=== PATIENT | male | born 1965 ===

== ENCOUNTER 2024-08-21 10:41 | Outpatient (AMB) | payer MEDICARE, MEDICAID, SELFPAY ==
[2024-08-21 11:12] VITALS: BP 133/95; PULSE 82; O2SAT 95; BMI 34.5
--- NOTE | 2024-08-21 11:12 | A.OFFVIS_ITS ---
Vital Signs 08/21/24 11:12 Height 6 ft 5 in Weight 291 lb BMI 34.5 BP 133/95 H Blood Pressure Location Rt brachial Position Sitting Pulse 82 Pulse Source Pulse Oximeter Pulse Oximetry (%) 95 Oxygen Delivery Method Room Air Intake Visit Reasons: Foot pain Stitching Machine Feeder Or Offbearer Services: Stitching Machine Feeder Or Offbearer Present Stitching Machine Feeder Or Offbearer Name: #[id number] then we used #[id number] Information Interpreted: non-clinical & clinical Allergies Atorvastatin Allergy (Unknown, Uncoded 08/21/24 11:14) Myalgia Medication List - Last Reconciled 08/21/24 by Pura Henry, DRUG PURCHASER alcohol swabs (BD Alcohol Swabs) pad topical BID amiodarone 200 mg PO DAILY apixaban (Eliquis) 5 mg PO BID cetirizine 10 mg PO DAILY diclofenac sodium 1% 1 ea topical QID fluticasone propionate 50 mcg/actuation sprays intranasal gabapentin mg PO gabapentin 600 mg PO TID glucagon (Gvoke HypoPen 2-Pack) mg subcut hydrocortisone 1% appl topical insulin aspart (niacinamide) 100 unit/mL (3 mL) (Fiasp FlexTouch U-100 Insulin) subcut insulin aspart U-100 subcut insulin glargine (Lantus Solostar U-100 Insulin) units subcut levothyroxine (Synthroid) 137 mcg PO DAILY levothyroxine (Synthroid) 100 mcg PO DAILY metoprolol succinate ER 25 mg PO DAILY naloxone 4 mg/actuation intranasal oxycodone mg PO pen needle, diabetic As directed polyethylene glycol 3350 (Gavilax) grams PO polymyxin B sulf-trimethoprim 10,000 unit- 1 mg/mL ophthalmic (eye) pravastatin 20 mg PO DAILY tizanidine 2 mg PO TID tramadol 50 mg PO BID PRN HPI Comments Details: Star is a very pleasant 59-year-old male who presents to the office today for evaluation and management of his painful bilateral peripheral neuropathy. Visit completed with [facility] [employer] #[id number]. He has been suffering with this pain since 01/2023 after undergoing partial pancreatectomy for cancer. He then developed diabetes. Reports bilateral foot pain, numbness to the heels bilaterally, numbness to the toes bilaterally, burning and tingling to the tops of both feet up to the ankle. Endorses burning, tingling, numbness pain to both feet that is worse in the evening and is preventing him from being able to sleep. Previously he was prescribed gabapentin, this did not improve his pain and he suffered with side effects including brain fog. The patient is known diabetic, most recent A1c is 7.2. He monitors his diabetes very closely. Takes his medications as prescribed. Reports he is very cautious and manages his sugars well. Patient has a health unit supervisor, at recent visit they referred him here for evaluation and management. In terms of muscle damage condition is described as throbbing, pinching, stabbing, tingling, burning, numbness Pain is negatively impacting patient's sleep, recreational activities, enjoyment of life. Endorses current use of anticoagulants, Eliquis. Denies current use of nicotine, tobacco, alcohol or illicit substances Denies implantable devices, pacemaker defibrillator [facility] Medical History (Updated 08/21/24 @ 12:33 by Ninoska Vogel APRN, C[employer]) Thyroid cancer Current use of anticoagulant therapy Hypertension High cholesterol Hypothyroid Pancreatic cancer Surgical History (Updated 08/21/24 @ 12:33 by Ninoska Vogel APRN, COOK [employer]ARCH) History of back surgery History of hip surgery H/O splenectomy Review of Systems Const All systems reviewed & are unremarkable except as noted in HPI and below Physical Exam Vital Signs: Last Vital Signs Pulse 82 08/21/24 11:12 BP 133/95 H 08/21/24 11:12 Pulse Ox 95 08/21/24 11:12 Oxygen Delivery Method Room Air 08/21/24 11:12 BMI result Body Mass Index 34.5 General: awake, alert, oriented. Answers questions appropriately. Fully engaged in examination. Skin: warm, dry, intact. No wounds, rashes or lesions noted. HEENT: Normocephalic. Hearing intact. Cardiac: External chest normal in appearance. Respiratory: No cough, audible wheezing or stridor. Abdomen: without gross distension. MS: No obvious swelling or deformities. Able to transition from sit to stand unassisted. Ambulates with bilaterally normal heel strike and toe off Right foot: skin intact. decreased light/sharp sensation Left foot: skin intact. decreased light/sharp sensation Neurological: Oriented to person, place, time and situation. Thought process intact. No gait abnormalities appreciated. Psychiatric: Appropriate mood and affect. Good judgment and insight. Assessment & Plan Assessment & Plan (1) Diabetes: Code(s): E11.9 - Type 2 diabetes mellitus without complications Category: Medical (2) Diabetic neuropathy: Code(s): E11.40 - Type 2 diabetes mellitus with diabetic neuropathy, unspecified Category: Medical (3) Chronic pain syndrome: Code(s): G89.4 - Chronic pain syndrome Category: Medical Plan Star is a very pleasant 59-year-old male who presented to the office today for evaluation and management of his painful bilateral diabetic neuropathy. He has been suffering with this pain for 2 years. Will discontinue Gabapentin and trial Pregabalin 50mg po BID. Patient advised on cautions for use. Discussed options for treatment including in office topical capsaicin appli cation and more permanent neuromodulation. Pamphlets for Qutenza in Kiswahili given to the patient for home review. Procedure was explained in depth including pre, during and post instructions. Will submit PA for Qutenza topical application. Patient advised on procedure including preparation and EMLA application prior to appointment. He is aware treatment is done in office and he will be here for at least 30minutes during each visit. Also discussed option for SCS trial/implant if no improvement with Qutenza/Lyrica. Will discuss further if patient does not receive benefit from Qutenza topical. All questions and concerns have been answered and patient agrees with the plan. Patient aware he will be called to schedule appointment for Qutenza pending insurance approval. Medications: New pregabalin Discontinue gabapentin prior to starting this medication. 50 mg PO BID 60 caps 3RF Coding Level of Care Code New Pt Level 4 (53049) Complex EM visit Add On G2211 Diagnoses Diabetes E11.9 Diabetic neuropathy E11.40 Chronic pain syndrome G89.4
--- OUTSIDE RECORDS SUMMARY | 2024-08-21 12:17 | XMS_ITS | Clinical Summary ---
Author Organization [address] [place] [address] Address [address] [place] [address] Phone Care Team Providers Care Plastics Bench Mechanic Name Role Phone Elisa Hobbs MD Primary Care Provider [phone] Allergies Active Allergy Reactions Criticality Noted Date Comments Atorvastatin 07/31/2024 Sitagliptin 07/31/2024 Encounters Date Type Department Care Team Description 07/31/2024 9:30 AM EDT Consult Orthopedic [facility] [address] [phone] Artem Orellana DPM Diabetic mononeuropathy simplex (CMS/HCC) (Primary Dx); Type 2 diabetes mellitus with foot ulcer (CODE) (CMS/HCC); Type II diabetes mellitus with peripheral circulatory disorder (CMS/HCC); Pain in toe of right foot; Pain in toe of left foot; Dermatophytosis of nail; Hypertrophy of nail from Last 3 Months Social History Tobacco Use Types Packs/Day Years Used Date Smoking Tobacco: Never Assessed Sex and Gender Information Value Date Recorded Sex Assigned at Not on file Legal Sex Male 4:16 AM EST Gender Identity Not on file Sexual Orientation Not on file Last Filed Vital Signs Vital Sign Reading Time Taken Comments Blood Pressure - - Pulse - - Temperature - - Respiratory Rate - - Oxygen Saturation - - Inhaled Oxygen Concentration - - Weight 134 kg (296 lb) 07/31/2024 10:50 AM EDT Height 195.6 cm (6' 5 ) 07/31/2024 10:50 AM EDT Body Mass Index 35.1 07/31/2024 10:50 AM EDT Plan of Treatment Upcoming Encounters Date Type Department Care Team ([facility] st Contact Info) Description 10/02/2024 9:30 AM EDT Office Visit Orthopedic Surgery [facility] [address] [phone] Artem Orellana, DPM [address] [address] Health Maintenance Due Date Last Done Comments Diabetes: Annual GFR (Glomerular Filtration Rate) 1963 Diabetes: Annual Foot Exam 1973 Diabetes: Annual Retina Eye Exam 1973 Hepatitis B Vaccines (2 of 2 - CpG 2-dose series) 01/02/2024 12/05/2023 COVID-19 Vaccine ( season) 2024 04/28/2021, 09/21/2020, 08/29/2020 Cholesterol Screening (Lipid Panel) 05/02/2024 Colorectal Cancer Screening: Colonoscopy 05/02/2024 Depression Screening 05/02/2024 Diabetes: Annual Urine Albumin-Creatinine Ratio (uACR) 05/02/2024 Diabetes: Blood Sugar Control Test (HGBA1C) 05/02/2024 HIV Screening 05/02/2024 Hepatitis C Screening 05/02/2024 Medicare Annual Wellness Visit 05/02/2024 Social Influencers of Health Screening 05/02/2024 Hypertension/CHF/CAD Annual BMP Blood Test 07/31/2024 DTaP,Tdap,and Td Vaccines (2 - Td or Tdap) 09/11/2028 09/11/2018 Zoster Vaccines Completed 05/22/2019, 03/14/2019 Pneumococcal Vaccine: 50+ Years Completed 01/18/2023, 06/24/2016 Pneumococcal Vaccine: Pediatrics (0 to 5 Years) and At-Risk Patients (6 to 64 Years) Completed 01/18/2023, 06/24/2016 HIB Vaccines Aged Out 02/09/2023 No longer eligi ble based on patient's age to complete this topic Meningococcal ACWY Vaccine Aged Out 03/20, 01/18/2023, 01/18/2023 No longer eligible based on patient's age to complete this topic Meningococcal B Vaccine Aged Out 03/20/2023, 01/18 No longer eligible based on patient's age to complete this topic RSV Immunization Adult Patients Completed 11/21/2023 Influenza Vaccine Completed 03/20/2024, , 03/02/2022, Additional history exists HPV Vaccines Aged Out No longer eligi ble based on patient's age to complete this topic Hepatitis A Vaccines Aged Out No long er eligible based on patient's age to complete this topic IPV Vaccines Aged Out No longer eligi ble based on patient's age to complete this topic MMR Vaccines Aged Out No longer eligi ble based on patient's age to complete this topic RSV Immunization Patients Under 20 months Aged Out No longer eligible based on patient's age to complete this topic Varicella Vaccines Aged Out No longer eligible based on patient's age to complete this topic Insurance MEDICARE MEDICAID - [place] Care Teams Plastics Bench Mechanic Relationship Specialty Start Date End Date Elisa Hobbs MD [address] [place] [address] PCP - General Internal Medicine 05/02/24
--- OUTSIDE RECORDS SUMMARY | 2024-08-21 12:17 | XMS_ITS | Clinical Summary ---
Author Organization [facility] Address [address] [place] [address] Care Team Providers Care Phd Internship Name Role Phone Unavailable Primary Care Provider Unavailabl e Source Comments PLEASE NOTE, if this patient is a minor, it may be UNLAWFUL to discuss sensitive information that is contained in these records (such as FAMILY PLANNING, MENTAL HEALTH or SUBSTANCE ABUSE) with the minor patient's parent or other person without the patient's specific authorization.[facility] Allergies No known active allergies Medications chlorhexidine gluconate (PERIDEX) 0.12 % solutionIndication s:Chronic periodontal disease Swish and spit 15 mL 2 (two) times daily 473 mL 1 2 Active SYNTHROID 100 mcg tablet 3 Active peg-electrolyte soln (NULYTELY) 420 gram solution 3 Active pravastatin (PRAVACHOL) 20 mg tablet 3 Active oxyCODONE (ROXICODONE) 5 mg tablet SINTIA 1 TABLETA POR LA BOCA CADA 6 HORAS CUANDO SEA NECESARIO PARA EL DOLOR MODERADO 3 Active metFORMIN (GLUCOPHAGE) 500 mg tablet 3 Active glipiZIDE XL (GLUCOTROL XL) 5 mg ER, 24 hour tablet 3 Active ibuprofen 600 mg tabletIndications: Chronic apical periodontitis Take 1 Tablet by mouth 4 (four) times daily as needed for mild pain 20 Tablet 3 Active amoxicillin (AMOXIL) 500 mg capsuleIndications :Chronic apical periodontitis Take 1 Capsule by mouth 3 (three) times daily 21 Capsule 3 Active Active Problems No known active problems Social History Tobacco Use Types Packs/Day Years Used Date Smoking Tobacco: Never Smokeless Tobacco: Never Tobacco Cessation:Counseling Given: Not Answered Social Connections Answer Date Recorded Connectedness 0 02/01/2024 Financial Resource Strain Answer Date R ecorded Financial Resource Strain 0 2021 Stress Answer Date Recorded Stress 0 12/02/2021 Physical Activity Answer Date Recorded Physical Activity 0 12/02/2021 Food Insecurity Answer Date Recorded Food 0 02/08/2024 Transportation Needs Answer Date Record ed Transportation 0 12/02/2021 Housing Stability Answer Date Recorded Housing 0 12/02/2021 Safety and Environment Answer Date Aakash rded Safety 0 12/02/2021 Utilities Answer Date Recorded Utilities 0 12/02/2021 Employment Answer Date Recorded Stress 0 02/01/2024 Sex and Gender Information Value Date Recorded Sex Assigned at Not on file Legal Sex Male 11:37 AM PDT Gender Identity Not on file Sexual Orientation Not on file Last Filed Vital Signs Vital Sign Reading Time Taken Comments Blood Pressure 132/81 05/09/2024 11:05 AM EST Pulse 74 05/09/2024 11:05 AM EST Temperature - - Respiratory Rate - - Oxygen Saturation - - Inhaled Oxygen Concentration - - Weight - - Height - - Body Mass Index - - Plan of Treatment Upcoming Encounters Date Type Department Care Team (Late st Contact Info) Description 11/07/2024 9:40 AM EDT Office Visit [facility] [address] [place] [phone] Vincent Segura, D [address] [place] [address] Health Maintenance Due Date Last Done Comments Anxiety Screening 1963 Dental FMX/Pano 1963 Diabetes Screening 1963 Hepatitis B Screening 1963 Hepatitis C Screening 1963 Lipid Screening 1963 TSH Monitoring 1963 HIV Screening 1963 Syphilis Screening 05/12/1977 Imm-Hepatitis A (1 of 2 - Ri sk 2-dose series) 1982 CT Colonography 2008 Colonoscopy 2008 Colorectal Cancer Screening 2008 FIT/gFOBT 2008 Fecal DNA 2008 Flexible Sigmoidoscopy 2008 Imm-Zoster, Recombinant (2 of 2) 05/09/2019 03/14/20 19 Imm-Hepatitis B (1 of 3 - Ri sk 3-dose series) 2023 [id number] ( season) 2024 04/28/2021, 09/21/2020, 08/29/2020 Alcohol and Drug Screen 05/15/2024 Depression Annual Screen 05/15/2024 Dental BW 11/09/2024 11/08/2023, 10/14, 05/04/2022, Additional history exists Hypertension Screening (#1) 05/09/2025 Tobacco Screening 05/09/2025 05/09/2024 Dental Examination 2025 05/09/2024, 0 11/08/2023, 05/09/2023, Additional history exists Dental Perio Charting 2025 05/09/2024 , 11/08/2023, 05/09/2023, Additional history exists Dental Prophy 2025 05/09/2024, 10/14, 05/09/2023, Additional history exists Imm-DTaP/Tdap/Td (2 - Td or Tdap) 09/11/2028 019 Imm-Influenza Completed 03/20/2024, 0910/2022, 03/02/2022, Additional history exists Procedures Procedure Name Priority Date/Time Associated Diagnosis Comments COMP PERIODONTAL EVALUATION - NEW/EST PATIENT Routine 05/09/2024 11:00 AM EST Encounter for dental examination PROPHYLAXIS - ADULT Routine 05/09/2024 1 1:00 AM EST Encounter for dental examination PERIODIC ORAL EVALUATION ESTABLISHED PATIENT Routine 05/09/2024 11:00 AM EST Encounter for dental examination BITEWINGS - FOUR RADIOGRAPHIC IMAGES Routine 11/08/2023 2:20 PM EDT Encounter for dental examination from Last 3 Months or Most Recently Relevant to Health Maintenance Insurance [place] MEDICAID DENTAL [facility]
== END 2024-08-21 11:28 | disposition home or self-care (01) ==
LOC: HO.PMC 10:41
PROVIDERS: PCP Internal Medicine; Referring Provider Internal Medicine; Visit Provider Registered Nurse Emergency
DX: E11.40 Type 2 diabetes mellitus with diabetic neuropathy, unspecified (principal); G89.4 Chronic pain syndrome
CPT/HCPCS: 99204; G2211

== ENCOUNTER → 2024-08-21 10:41 | Outpatient (BNVA) | payer MEDICARE, MEDICAID, SELFPAY | PROVIDERS: PCP Internal Medicine; Referring Provider Internal Medicine; Visit Provider Registered Nurse Emergency | DX: E11.40 Type 2 diabetes mellitus with diabetic neuropathy, unspecified (principal); G89.4 Chronic pain syndrome | CPT/HCPCS: 99202 ==

== ENCOUNTER 2024-09-18 09:10 | Outpatient (AMB) | payer MEDICARE, MEDICAID, SELFPAY ==
[2024-09-18 09:20] VITALS: BP 154/90; PULSE 82; O2SAT 95; BMI 34.1
--- NOTE | 2024-09-18 09:20 | MHC.OFFVIS ---
Vital Signs 09/18/24 09:20 Height 6 ft 5 in Weight 288 lb BMI 34.1 BP 154/90 H Blood Pressure Location Rt brachial Position Sitting Pulse 82 Pulse Source Pulse Oximeter Pulse Oximetry (%) 95 Oxygen Delivery Method Room Air Intake Visit Reasons: Denial FU Senior Digital Designer Required: No Allergies Atorvastatin Allergy (Unknown, Uncoded 09/18/24 09:21) Myalgia Medication List - Last Reconciled 09/18/24 by Pura Henry, FABIANO alcohol swabs (BD Alcohol Swabs) pad topical BID amiodarone 200 mg PO DAILY apixaban (Eliquis) 5 mg PO BID cetirizine 10 mg PO DAILY diclofenac sodium 1% 1 ea topical QID fluticasone propionate 50 mcg/actuation sprays intranasal glucagon (Gvoke HypoPen 2-Pack) mg subcut hydrocortisone 1% appl topical insulin aspart (niacinamide) 100 unit/mL (3 mL) (Fiasp FlexTouch U-100 Insulin) subcut insulin aspart U-100 subcut insulin glargine (Lantus Solostar U-100 Insulin) units subcut levothyroxine (Synthroid) 137 mcg PO DAILY levothyroxine (Synthroid) 100 mcg PO DAILY metoprolol succinate ER 25 mg PO DAILY naloxone 4 mg/actuation intranasal oxycodone mg PO pen needle, diabetic As directed polyethylene glycol 3350 (Gavilax) grams PO polymyxin B sulf-trimethoprim 10,000 unit- 1 mg/mL ophthalmic (eye) pravastatin 20 mg PO DAILY pregabalin 50 mg PO BID tizanidine 2 mg PO TID tramadol 50 mg PO BID PRN HPI Comments Details: The patient is a 59-year-old male presenting with neuropathic pain primarily affecting his feet. This discomfort is described as a burning sensation, which has persisted since the diagnosis of diabetes mellitus. While current medications have offered some relief, the efficacy remains limited, and he has opted not to alter the dosage due to his concurrent medical conditions. This neuropathic pain considerably affects his quality of life, disturbing his sleep and daily activities. The patient also has a history of pancreatic cancer identified in 2022, which retrospective imaging suggested had been present since 2019. This was discovered following the of his brother, who had suffered from the same malignancy. The patient has also been treated for thyroid cancer diagnosed in 2008. Insurance complications have further complicated his care, with current treatment for his foot pain denied due to perceived lack of adequate medical documentation. Patient would like PA resubmitted to include more detailed records. - Onset: Associated with diabetes diagnosis - Timing: Persisting, exacerbated during nighttime - Quality: Burning sensation - Primary Location: Feet - Exacerbating Factors: Nighttime, inactivity - Alleviating Factors: Mild relief with current medication - Interference: Quality of sleep, daily activities - Affect: The pain impacts his mood, sometimes causing feelings of frustration - Analgesia: Current medication provides little relief; concerns about increasing dose due to multiple other medications - Adverse Effects: Not explicitly mentioned - Activities of Daily Living: Pain significantly disrupts sleep and daily functions - Aberrant Drug Related Behaviors: None mentioned [facility] Medical History (Updated 09/18/24 @ 12:31 by Ninoska Vogel APRN, VICE PRESIDENT SUPPLY CHAIN) Thyroid cancer Current use of anticoagulant therapy Hypertension High cholesterol Hypothyroid Pancreatic cancer Surgical History (Updated 08/21/24 @ 12:33 by Ninoska Vogel APRN, VICE PRESIDENT [employer]PPLY CHAIN) History of back surgery History of hip surgery H/O splenectomy Review of Systems Const Details: - Neurological: Reports burning sensation in feet - Endocrine: History of diabetes mellitus - Musculoskeletal: Denies any other complaints - Hematologic/Oncologic: Reports history of pancreatic and thyroid cancers Physical Exam Vital Signs: Last Vital Signs Pulse 82 09/18/24 09:20 BP 154/90 H 09/18/24 09:20 Pulse Ox 95 09/18/24 09:20 Oxygen Delivery Method Room Air 09/18/24 09:20 BMI result Body Mass Index 34.1 General: awake, alert, oriented. Answers questions appropriately. Fully engaged in examination. Skin: warm, dry, intact. No wounds, rashes or lesions noted. HEENT: Normocephalic. Hearing intact. Cardiac: External chest normal in appearance. Respiratory: No cough, audible wheezing or stridor. Abdomen: without gross distension. MS: No obvious swelling or deformities. Able to transition from sit to stand unassisted. Ambulates with bilaterally normal heel strike and toe off Neurological: Oriented to person, place, time and situation. Thought process intact. No gait abnormalities appreciated. Psychiatric: Appropriate mood and affect. Good judgment and insight. Assessment & Plan Assessment & Plan (1) Diabetes: Code(s): E11.9 - Type 2 diabetes mellitus without complications Category: Medical (2) Diabetic neuropathy: Code(s): E11.40 - Type 2 diabetes mellitus with diabetic neuropathy, unspecified Category: Medical (3) Chronic pain syndrome: Code(s): G89.4 - Chronic pain syndrome Category: Medical (4) History of pancreatic cancer: Code(s): Z85.07 - Personal history of malignant neoplasm of pancreas Category: Medical Plan The primary focus is on managing the patient's diabetic neuropathy, with plans to resubmit insurance documentation to approve more effective therapeutic interventions. There are considerations to advance to a spinal cord stimulator trial if initial measures remain inadequate. All relevant documentation and medical records will be reviewed to facilitate treatment approvals. During the visit, I discussed the patient's neuropathic pain management options. I explained the possibility of resubmitting insurance documentation to acquire approval for alternative treatments, including the Qutenza patch. I reviewed the potential for a spinal cord stimulator trial, describing its application in neuropathy treatment and the procedural aspects involved in a trial period. The patient was informed about insurance challenges faced and strategies to align future submissions with payer requirements. He has exhausted conservative therapy including OTC medications, prescription medications. ice, heat, topical medications. Unable to take NSAIDs d/t current use of Eliquis. Patient was informed and verbally consented to the use of an ambient scribe for clinic note documentation during this visit. Patient Instructions: - Continue current pain management regimen as prescribed. - Keep a pain diary to track symptoms and treatment effects. - Await contact regarding insurance resubmission outcomes. - Consider light walking to help manage pain symptoms. - Notify of any new or worsening symptoms promptly. - Maintain regular follow-up appointments for monitoring. Coding Level of Care Code Est Pt Level 3 (25170) Complex EM visit Add On G2211 Diagnoses Diabetes E11.9 Diabetic neuropathy E11.40 Chronic pain syndrome G89.4 History of pancreatic cancer Z85.07
--- OUTSIDE RECORDS SUMMARY | 2024-09-18 09:44 | XMS_ITS | Clinical Summary ---
Author Organization [facility] Address [address] [place] [address] Care Team Providers Care Tool Machinist Name Role Phone Unavailable Primary Care Provider [...] Description 11/07/2024 9:40 AM EDT Office Visit [facility] [address] [place] [phone] Ramirez Jayleen Y [address] [place] [address] Health Maintenance Due Date Last Done Comments [...] 3 - Ri sk 3-dose series) 2023 [id number] ( season) 2024 04/28/2021, 09/21/2020, 08/29/2020 Alcohol [...] or Tdap) 09/11/2028 019 Imm-Influenza Completed 03/20/2024, 10/2022, 03/02/2022, Additional history exists Procedures Procedure Name [...] Most Recently Relevant to Health Maintenance Insurance [place] MEDICAID DENTAL [facility]
--- OUTSIDE RECORDS SUMMARY | 2024-09-18 09:44 | XMS_ITS | Clinical Summary ---
Author Organization [address] [place] [address] Address 175 [place] [address] Phone Care Team Providers Care Product Safety Consultant Name Role Phone Elisa Hobbs MD Primary Care Provider [phone] Allergies Active Allergy Reactions Criticality Noted Date Comments Atorvastatin 07/31/2024 Sitagliptin 07/31/2024 Encounters Date Type Department Care Team Description 07/31/2024 9:30 AM EDT Consult Orthopedic Surgery [facility] 250 [address] [facility] [address] [place] [address] Artem Orellana DPM Diabetic mononeuropathy simplex (CMS/HCC V24, CMS/HCC V28) (Primary Dx); Type 2 diabetes mellitus with foot ulcer (CODE) (CMS/HCC V24, CMS/HCC V28); Type II diabetes mellitus with peripheral circulatory disorder (CMS/HCC V24, CMS/HCC V28); Pain in toe of right foot; Pain [...] Upcoming Encounters Date Type Department Care Team ([facility] st Contact Info) Description 10/02/2024 9:30 AM EDT Office Visit Orthopedic Surgery - [place] 250 175 [facility] 250 [place] [phone] Artem Orellana, DPLauren [address] [address] Health Maintenance Due Date Last Done Comments Diabetes: Annual GFR (Glomerular Filtration Rate) 1963 Diabetes: Annual Foot Exam 1973 Diabetes: Annual Retina Eye Exam 1973 Hepatitis B Vaccines (2 of 2 - CpG 2-dose series) 01/02/2024 12/05/2023 COVID-19 Vaccine () 01/14/2024 04/28/2021, 09/21/2020, 08/29/2020 Cholesterol Screening (Lipid Panel) [...] Insurance MEDICARE MEDICAID - [place] Care Teams Product Safety Consultant Relationship Specialty Start Date End Date Elisa Hobbs MD [address] [place] [address] PCP - General Internal Medicine 05/02/24
== END 2024-09-18 09:33 | disposition home or self-care (01) ==
LOC: HO.PMC 09:11
PROVIDERS: PCP Internal Medicine; Visit Provider Registered Nurse Emergency
DX: E11.40 Type 2 diabetes mellitus with diabetic neuropathy, unspecified (principal); G89.4 Chronic pain syndrome; Z85.07 Personal history of malignant neoplasm of pancreas
CPT/HCPCS: 99213; G2211

== ENCOUNTER → 2024-09-18 09:10 | Outpatient (BNVA) | payer MEDICARE, MEDICAID, SELFPAY | PROVIDERS: PCP Internal Medicine; Visit Provider Registered Nurse Emergency | DX: E11.40 Type 2 diabetes mellitus with diabetic neuropathy, unspecified (principal); G89.4 Chronic pain syndrome; Z85.07 Personal history of malignant neoplasm of pancreas | CPT/HCPCS: 99212 ==

== ENCOUNTER 2024-10-23 10:21 | Outpatient (AMB) | payer MEDICARE, MEDICAID, SELFPAY ==
[2024-10-23 10:23] VITALS: BP 131/79; PULSE 88; RESP 16; O2SAT 92; BMI 34.0
--- NOTE | 2024-10-23 10:23 | MHC.OFFVIS ---
Vital Signs 10/23/24 10:23 10/23/24 10:52 10/23/24 11:13 Height 6 ft 5 in Weight 287 lb BMI 34.0 BP 131/79 125/78 131/82 Blood Pressure Location Lt brachial Lt brachial Lt brachial Position Sitting Sitting Sitting Respiration 16 16 16 Pulse 88 80 78 Pulse Source Pulse Oximeter Pulse Oximeter Pulse Oximeter Pulse Oximetry (%) 92 95 95 Oxygen Delivery Method Room Air Room Air Room Air Intake Visit Reasons: 1st Qutenza application Radiation Protection Engineer Required: No Accompanied by: Self / Same As Patient Allergies Atorvastatin Allergy (Unknown, Uncoded 09/18/24 09:21) Myalgia HPI Comments Details: Star is a very pleasant 59-year-old male who presents to the office today for first Qutenza application. Patient applied EMLA cream at home per instructions. He is accompanied by his today. He denies any changes in his bilateral peripheral neuropathy since last visit. Denies new meds, allergies or diagnoses. Patient denies any recent injuries or wounds to his feet. Has been taking pregabalin as prescribed since last visit, reports minimal improvement in his symptoms since starting the medication. Would like to consider dose increase. [facility] Medical History (Updated 09/18/24 @ 12:31 by Ninoska Vogel APRN, GUNJAN) Thyroid cancer Current use of anticoagulant therapy Hypertension High cholesterol Hypothyroid Pancreatic cancer Surgical History (Updated 08/21/24 @ 12:33 by Ninoska Vogel APRN, AXLE BEARING POLISHER) History of back surgery History of hip surgery H/O splenectomy Review of Systems Const All systems reviewed & are unremarkable except as noted in HPI and below Physical Exam Vital Signs: Last Vital Signs Pulse 78 10/23/24 11:13 Resp 16 10/23/24 11:13 BP 131/82 10/23/24 11:13 Pulse Ox 95 10/23/24 11:13 Oxygen Delivery Method Room Air 10/23/24 11:13 BMI result Body Mass Index 34.0 General: awake, alert, oriented. Answers questions appropriately. Fully engaged in examination. Skin: warm, dry, intact. No wounds, rashes or lesions noted. HEENT: Normocephalic. Hearing intact. Cardiac: External chest normal in appearance. Respiratory: No cough, audible wheezing or stridor. Abdomen: without gross distension. MS: No obvious swelling or deformities. Able to transition from sit to stand unassisted. Ambulates with bilaterally normal heel strike and toe off Neurological: Oriented to person, place, time and situation. Thought process intact. No gait abnormalities appreciated. Psychiatric: Appropriate mood and affect. Good judgment and insight. Office Procedures Topical Capsaicin Date 1:: 10/23/24 Laterality: Bilateral Office Meds capsaicin-skin cleanser 8 % topical kit Performing Provider: Ninoska Vogel APRN, CNP Performing Location: [facility] Administered by: Ninoska Vogel APRN, CNP on 10/23/24 12:58 Dose Route Admin Location Dispensed Lot Number Expiration Date [facility] Psychiatric Technician Assistant 1 ea topical 1 ea [id number] 03/13/26 36433-945-46 [employer] Comments: Patient applied topical EMLA cream to both feet prior to arrival for his scheduled appointment. Feet exposed, no wounds, rashes or breaks in skin noted. Light touch sensation intact bilaterally. Four single use topical patches (179mg capsaicin) divided between feet, 2 patches per foot, wrapped and secured per package instructions. Patient monitored throughout the procedure with BP checks every 15 minutes. He tolerated the 30 minute application well. Assessment & Plan Assessment & Plan (1) Diabetic neuropathy: Code(s): E11.40 - Type 2 diabetes mellitus with diabetic neuropathy, unspecified Category: Medical (2) Diabetes: Code(s): E11.9 - Type 2 diabetes mellitus without complications Category: Medical (3) Chronic pain syndrome: Code(s): G89.4 - Chronic pain syndrome Category: Medical (4) History of pancreatic cancer: Code(s): Z85.07 - Personal history of malignant neoplasm of pancreas Category: Medical Plan Patient presented to the office today for 1st Qutenza topical application for bilateral peripheral neuropathy. Qutenza application as per above. Patient tolerated well, discharged home with no reported untoward effects. Cleansing gel applied prior to discharge, patient given cleansing gel for home use if needed. Will increase Lyrica dose to 100 mg twice daily. He was advised to use prescription that he just filled at the pharmacy, take 2 pills twice daily. Call the office one-week before refill as needed so new prescription can be sent. If he notices increased drowsiness with the increased dose he should contact the office, we can trial 75 mg twice daily instead. All questions and concerns were answered. Patient will follow up in the office as planned for next Qutenza application. Orders: Orders AMB Capsaicin Patch - Practice Supplied Today E11.40 - Type 2 diabetes mellitus with diabetic neuropathy, unspecified Medications: New capsaicin-skin cleanser 8 % 1 ea topical ONCE 1 ea 0RF E11.40 - Type 2 diabetes mellitus with diabetic neuropathy, unspecified Coding Level of Care Code Est Pt Level 3 (75143) Complex EM visit Add On G2211 Diagnoses Diabetic neuropathy E11.40 Diabetes E11.9 Chronic pain syndrome G89.4 History of pancreatic cancer Z85.07
[2024-10-23 10:52] VITALS: BP 125/78; PULSE 80; RESP 16; O2SAT 95
[2024-10-23 11:13] VITALS: BP 131/82; PULSE 78; RESP 16; O2SAT 95
--- OUTSIDE RECORDS SUMMARY | 2024-10-23 11:44 | XMS_ITS | Clinical Summary ---
Author Organization [address] [place] [address] Address 175 [place] [address] Phone Care Team Providers Care Safety Clothing And Equipment Developer Name Role Phone Elisa Hobbs MD Primary Care Provider [phone] Allergies Active Allergy Reactions Criticality Noted Date Comments Atorvastatin 07/31/2024 Sitagliptin 07/31/2024 Medications No known medications Encounters Date Type Department Care Team Description 10/02/2024 9:30 AM EDT Office Visit Orthopedic Surgery [facility] [address] [phone] Artem Orellana DPM Hypertrophy of nail (Primary Dx); Type 2 diabetes mellitus with foot ulcer (CODE) ([facility] V24, [facility] V28); Diabetic mononeuropathy simplex ([facility] V24, CMS/[facility] V28); Type II diabetes mellitus with peripheral circulatory disorder (CMS/[facility] V24, CMS/[facility] V28); Pain in toe of right foot; Pain in toe of left foot; Verruca plantaris 07/31/2024 9:30 AM EDT Consult Orthopedic [facility] [address] [phone] Artem Orellana DPM Diabetic mononeuropathy simplex (CMS/[facility] V24, CMS/[facility] V28) (Primary Dx); Type 2 diabetes mellitus [...] Sex Male 4:16 AM EST Gender Identity Male 09/25/2024 12:25 PM EDT Sexual Orientation Straight 09/25/2024 12 :25 PM EDT Last Filed Vital Signs Vital Sign Reading Time Taken Comments Blood Pressure - - Pulse - - Temperature - - Respiratory Rate - - Oxygen Saturation - - Inhaled Oxygen Concentration - - Weight 134 kg (296 lb) 10/02/2024 9:19 AM EDT Height 195.6 cm (6' 5.01 ) 10/02/2024 9:19 AM ED T Body Mass Index 35.09 10/02/2024 9:19 AM EDT Plan of Treatment Upcoming Encounters Date Type Department Care Team (Late st Contact Info) Description 11/20/2024 9:15 AM EDT Office Visit Orthopedic Surgery - [place] [phone] [phone] Artem Orellana, DPM [address] [address] Health Maintenance Due Date Last Done Comments [...] Insurance MEDICARE MEDICAID - [place] Care Teams Safety Clothing And Equipment Developer Relationship Specialty Start Date End Date Elisa Hobbs MD [address] [place] [address] PCP - General Internal Medicine 05/02/24
== END 2024-10-23 11:19 | disposition home or self-care (01) ==
LOC: HO.PMC 10:21
PROVIDERS: PCP Internal Medicine; Visit Provider Registered Nurse Emergency
DX: E11.40 Type 2 diabetes mellitus with diabetic neuropathy, unspecified (principal); G89.4 Chronic pain syndrome; Z85.07 Personal history of malignant neoplasm of pancreas
CPT/HCPCS: 17999; 99213

== ENCOUNTER → 2024-10-23 10:21 | Outpatient (BNVA) | payer MEDICARE, MEDICAID, SELFPAY | PROVIDERS: PCP Internal Medicine; Visit Provider Registered Nurse Emergency | DX: E11.40 Type 2 diabetes mellitus with diabetic neuropathy, unspecified (principal); G89.4 Chronic pain syndrome; Z85.07 Personal history of malignant neoplasm of pancreas | CPT/HCPCS: 17999; 99212; J7336 ==

== ENCOUNTER 2025-01-17 10:08 | Outpatient (AMB) | payer MEDICARE, MEDICAID, SELFPAY ==
--- NOTE | 2025-01-17 10:39 | MHC.OFFVIS ---
Vital Signs 01/17/25 10:40 Weight 284 lb BP 139/86 Blood Pressure Location Rt brachial Position Sitting Respiration 18 Pulse 82 Pulse Source Pulse Oximeter Pulse Oximetry (%) 98 Oxygen Delivery Method Room Air Intake Visit Reasons: QUTENZA Director Recreation Required: No Allergies Atorvastatin Allergy (Unknown, Uncoded 09/18/24 09:21) Myalgia HPI Comments Details: Star is a very pleasant 59-year-old male who presents to the office today for 2nd Qutenza application for bilateral peripheral neuropathy. Patient applied EMLA cream at home per instructions. He is accompanied by his today. He denies any changes in his painful bilateral peripheral neuropathy since last visit. Denies new meds, allergies or diagnoses. Patient denies any recent injuries or wounds to his feet. Today patient is also seeking treatment for thoracic back and bilateral rib pain that he has been suffering for for approximately 5 months. States he spoke to his PCP about this and was told to take Tylenol. Patient currently takes tizanidine but states this is not helping his pain. Pain is worse with lying flat, movement, twisting and deep breathing. Some tenderness to palpation over the ribs and middle back. He denies any fall, trauma, injury. Denies cough or recent viral illness. Denies fever, chills, chest pain, shortness of breath. [facility] Medical History (Updated 01/17/25 @ 11:01 by Ninoska Vogel APRN, GUNJAN) Thyroid cancer Current use of anticoagulant therapy Hypertension High cholesterol Hypothyroid Pancreatic cancer Surgical History (Updated 08/21/24 @ 12:33 by Ninoska Vogel APRN, GUNJAN) History of back surgery History of hip surgery H/O splenectomy Review of Systems Const All systems reviewed & are unremarkable except as noted in HPI and below Physical Exam Exam Exam: General: awake, alert, oriented. Answers questions appropriately. Fully engaged in examination. Skin: warm, dry, intact. No wounds, rashes or lesions noted. HEENT: Normocephalic. Hearing intact. Cardiac: External chest normal in appearance. Respiratory: No cough, audible wheezing or stridor. Minimally tender over anterior bilateral lower ribs. Abdomen: without gross distension. MS: No obvious swelling or deformities. Thoracic spine: Tenderness to palpation midline thoracic vertebrae and paraspinal muscles. Right foot: skin intact. decreased light/sharp sensation Left foot: skin intact. decreased light/sharp sensation Neurological: Oriented to person, place, time and situation. Thought process intact. No gait abnormalities appreciated. Psychiatric: Appropriate mood and affect. Good judgment and insight. Vital Signs: Last Vital Signs Pulse 82 01/17/25 10:40 Resp 18 01/17/25 10:40 BP 139/86 01/17/25 10:40 Pulse Ox 98 01/17/25 10:40 Oxygen Delivery Method Room Air 01/17/25 10:40 Office Procedures Topical Capsaicin Date 1:: 10/23/24 Date 2:: 01/17/25 Laterality: Left Quality of pain: Aching, Burning and Numb-like Office Meds capsaicin-skin cleanser 8 % topical kit Performing Provider: Ninoska Vogel APRN, CNP Performing Location: [facility] Administered by: Ninoska Vogel APRN, CNP on 01/17/25 11:06 Dose Route Admin Location Dispensed Lot Number Expiration Date [employer] Glass Embosser 4 ea topical 4 ea [id number] 04/14/26 06737-074-15 [employer] Total Dispensed Waste 4 ea 0 % Comments: Patient applied topical EMLA cream to both feet prior to arrival for his scheduled appointment. Feet exposed, no wounds, rashes or breaks in skin noted. Light touch sensation intact bilaterally. Four single use topical patches (179mg capsaicin) divided between feet, 2 patches per foot, wrapped and secured per package instructions. Patient monitored throughout the procedure with BP checks every 15 minutes. He tolerated the 30 minute application well. Assessment & Plan Assessment & Plan (1) Costochondritis: Code(s): M94.0 - Chondrocostal junction syndrome [Tietze] Category: Medical (2) Thoracic back pain: Code(s): M54.6 - Pain in thoracic spine Category: Medical (3) Thoracic spondylosis: Code(s): M47.814 - Spondylosis without myelopathy or radiculopathy, thoracic region Category: Medical (4) Diabetic neuropathy: Code(s): E11.40 - Type 2 diabetes mellitus with diabetic neuropathy, unspecified Category: Medical (5) Diabetes: Code(s): E11.9 - Type 2 diabetes mellitus without complications Category: Medical (6) Chronic pain syndrome: Code(s): G89.4 - Chronic pain syndrome Category: Medical (7) History of pancreatic cancer: Code(s): Z85.07 - Personal history of malignant neoplasm of pancreas Category: Medical Plan Patient presented to the office today for 2nd Qutenza topical application for bilateral peripheral neuropathy. Qutenza application as per above. Patient tolerated well, discharged home with no reported untoward effects. Cleansing gel applied prior to discharge, patient given cleansing gel for home use if needed. Continue with Lyrica 100 mg twice daily. For patient's thoracic back pain/costochondritis x-rays have been ordered. Physical therapy ordered Continue taking Tylenol and tizanidine as prescribed. Patient unable to take NSAIDs due to current use of Eliquis. If no improvement after physical therapy plan for bilateral diagnostic thoracic MBB with local anesthetic under fluoroscopy guidance. Patient will need to stop his Eliquis for any and all procedures. All questions and concerns were answered. Patient will follow up in the office as planned for next Qutenza application. Orders: Orders XR thoracic spine 3V Today M47.814 - Spondylosis without myelopathy or radiculopathy, thoracic region, M54.6 - Pain in thoracic spine, M94.0 - Chondrocostal junction syndrome [Tietze] AMB Capsaicin Patch - Practice Supplied Today E11.40 - Type 2 diabetes mellitus with diabetic neuropathy, unspecified PT Evaluation and Treatment Today M47.814 - Spondylosis without myelopathy or radiculopathy, thoracic region, M54.6 - Pain in thoracic spine, M94.0 - Chondrocostal junction syndrome [Tietze] XR chest 2V Today M94.0 - Chondrocostal junction syndrome [Tietze] Coding Level of Care Code Est Pt Level 4 (47611) Complex EM visit Add On G2211 Diagnoses Costochondritis M94.0 Thoracic back pain M54.6 Thoracic spondylosis M47.814 Diabetic neuropathy E11.40 Diabetes E11.9 Chronic pain syndrome G89.4 History of pancreatic cancer Z85.07
[2025-01-17 10:40] VITALS: BP 139/86; PULSE 82; RESP 18; O2SAT 98
--- OUTSIDE RECORDS SUMMARY | 2025-01-17 11:04 | XMS_ITS | Clinical Summary ---
Author Organization [facility] Address [address] [place] [address] Care Team Providers Care Baggage Handling Supervisor Name Role Phone Unavailable Primary Care Provider [...] Active Active Problems No known active problems Encounters Date Type Department Care Team Description 11/07/2024 10:20 AM EDT Office Visit [place] [id number] [place] [address] Jayleen Ramirez Dahlia from Last 3 Months Social History Tobacco [...] Care Team (Late st Contact Info) Description 02/28/2025 3:40 PM EDT Office Visit [facility] [address] [place] [phone] Huber Ramirezssica Y [address] [place] [address] Health Maintenance Due Date Last Done Comments Anxiety Screening 1963 Dental FMX/Pano 1963 Diabetes Screening 1963 Hepatitis B Screening 1963 Hepatitis C Screening 1963 Lipid Screening 1963 TSH Monitoring 1963 Urine Drug Screen 1965 HIV Screening 1963 Syphilis Screening 05/12/1977 Imm-Hepatitis A (1 of 2 - Ri sk 2-dose series) 1982 CT Colonography 2008 Colonoscopy 2008 Colorectal Cancer Screening 2008 FIT/gFOBT 2008 Fecal DNA 2008 Flexible Sigmoidoscopy 2008 Imm-Zoster, Recombinant (2 of 2) 05/09/2019 03/14/20 19 Imm-Hepatitis B (1 of 3 - Ri sk 3-dose series) 2023 Alcohol and Drug Screen 05/15/2024 Depression Annual Screen 05/15/2024 [id number] ( season) 2025 04/28/2021, 09/21/2020, 08/29/2020 Imm-Influenza (#1) 2025 03/20/2024, 0 01/18/2023, 03/02/2022, Additional history exists Hypertension Screening (#1) 05/09/2025 Tobacco Screening 05/09/2025 05/09/2024 Dental Perio Charting 2025 05/09/2024 , 11/08/2023, 05/09/2023, Additional history exists Dental BW 11/09/2025 11/07/2024, 10/14, 11/03/2022, Additional history exists Dental Examination 11/09/2025 11/07/2024, 1 07/10/2023, 11/08/2023, Additional history exists Dental Prophy 11/09/2025 11/07/2024, 04/15, 11/08/2023, Additional history exists Imm-DTaP/Tdap/Td (2 - Td or Tdap) 09/11/2028 019 Imm-Pneumococcal 50+ Completed 01/18/2023, 06/24/19 17 Procedures Procedure Name Priority Date/Time Associated Diagnosis Comments PERIODIC ORAL EVALUATION ESTABLISHED PATIENT Routine 11/07/2024 10:20 AM EDT Encounter for dental examination and cleaning with abnormal findings Stage 4 grade C generalized periodontitis per AAP/EFP 2017 classification DENTAL CASE MANAGEMENT - MOTIVATIONAL INTV Routine 11/07/2024 10:20 AM EDT Encounter for dental examination and cleaning with abnormal findings Stage 4 grade C generalized periodontitis per AAP/EFP 2017 classification PROPHYLAXIS - ADULT Routine 11/07/2024 1 0:20 AM EDT Encounter for dental examination and cleaning with abnormal findings Stage 4 grade C generalized periodontitis per AAP/EFP 2017 classification BITEWINGS - FOUR RADIOGRAPHIC IMAGES Routine 11/07/2024 10:20 AM EDT Encounter for dental examination and cleaning with abnormal findings Stage 4 grade C generalized periodontitis per AAP/EFP 2017 classification CARIES RISK ASSESSMENT & DOC FINDING HIGH RISK Routine 11/07/2024 10:20 AM EDT Encounter for dental examination and cleaning with abnormal findings Stage 4 grade C generalized periodontitis per AAP/EFP 2017 classification NUTRITIONAL COUNSELING CONTROL OF DENTAL DISEASE Routine 11/07/2024 10:20 AM EDT Encounter for dental examination and cleaning with abnormal findings Stage 4 grade C generalized periodontitis per AAP/EFP 2017 classification ORAL HYGIENE INSTRUCTIONS Routine 11/07/2024 10:20 AM EDT Encounter for dental examination and cleaning with abnormal findings Stage 4 grade C generalized periodontitis per AAP/EFP 2017 classification ORAL CANCER SCREENING Routine 11/07/2024 10:20 AM EDT Encounter for dental examination and cleaning with abnormal findings Stage 4 grade C generalized periodontitis per AAP/EFP 2017 classification CASE PRESENTATION SUBS DTL & EXTENSIVE TX PLN Routine 11/07/2024 10:20 AM EDT Encounter for dental examination and cleaning with abnormal findings COMP PERIODONTAL EVALUATION - NEW/EST PATIENT Routine 05/09/2024 11:00 AM EST Encounter for dental examination from Last 3 Months or Most Recently Relevant to Health Maintenance Insurance [place] MEDICAID DENTAL [facility]
--- OUTSIDE RECORDS SUMMARY | 2025-01-17 11:04 | XMS_ITS | Clinical Summary ---
Author Organization [address] [place] [address] Address [address] [place] [address] Phone Care Team Providers Care Manufacturing Quality Technician Name Role Phone RamirezElisa Fontaine MD Primary Care Provider [phone] Allergies Active Allergy Reactions Criticality Noted Date Comments Atorvastatin 07/31/2024 Sitagliptin 07/31/2024 Medications No known medications Encounters Date Type Department Care Team Description 01/01/2025 8:45 AM EDT Office Visit Orthopedic [address] [phone] Artem Orellana, DPM Ingrowing nail (Primary Dx); Type 2 diabetes mellitus with foot ulcer (CODE) ([facility] V24, [facility] V28); Diabetic mononeuropathy simplex ([facility] V24, [facility] V28); Verruca plantaris; Type II diabetes mellitus with peripheral circulatory disorder ([facility] V24, [facility] V28) 11/20/2024 9:15 AM EDT Office Visit Orthopedic [address] [phone] Artem Orellana, DPM Hypertrophy of nail (Primary Dx); Ingrowing nail; Type 2 diabetes mellitus with foot ulcer (CODE) ([facility] V24, [facility] V28); Diabetic mononeuropathy simplex ([facility] V24, [facility] V28); Verruca plantaris from Last 3 Months Social History Tobacco [...] Oxygen Concentration - - Weight 134 kg (295 lb 6.7 oz) 01/01/2025 8:45 AM EDT Height 195.6 cm (6' 5.01 ) 01/01/2025 8:45 AM ED T Body Mass Index 35.02 01/01/2025 8:45 AM EDT Plan of Treatment Upcoming Encounters Date Type Department Care Team (Late st Contact Info) Description 03/19/2025 10:00 AM EST Office Visit Orthopedic Surgery - [place] [address] [phone] Artem Orellana, DPM [address] [phone] Health Maintenance Due Date Last Done Comments Diabetes: Annual GFR (Glomerular Filtration Rate) 1963 Diabetes: Annual Foot Exam 1973 Diabetes: Annual Retina Eye Exam 1973 Hepatitis B Vaccines (2 of 2 - CpG 2-dose series) 01/02/2024 12/05/2023 Cholesterol Screening (Lipid Panel) 05/02/2024 Colorectal Cancer Screening: Colonoscopy 05/02/2024 Diabetes: Annual Urine Albumin-Creatinine Ratio (uACR) 05/02/2024 Diabetes: Blood Sugar Control Test (HGBA1C) 05/02/2024 HIV Screening 05/02/2024 Hepatitis C Screening 05/02/2024 Medicare Annual Wellness Visit 05/02/2024 Social Influencers of Health Screening 05/02/2024 Depression Screening 05/15/2024 Hypertension/CHF/CAD Annual BMP Blood Test 07/31/2024 COVID-19 Vaccine ( season) 2025 04/28/2021, 09/21/2020, 08/29/2020 Influenza Vaccine (#1) 2025 , 01/18/2023, 03/02/2022, Additional history exists DTaP,Tdap,and Td Vaccines (2 - Td or Tdap) 09/11/2028 09/11/2018 Zoster Vaccines Completed 05/22/2019, 03/14/2019 Pneumococcal Vaccine: 50+ Years Completed 01/18/2023, 06/24/2016 HIB Vaccines Aged Out 02/09/2023 No longer eligi ble based on patient's age to complete this topic Meningococcal ACWY Vaccine Aged Out 03/20, 01/18/2023, 01/18/2023 No longer eligible based on patient's age to complete this topic Meningococcal B Vaccine Aged Out 03/20/2023, 01/18 No longer eligible based on patient's age to complete this topic RSV Immunization Adult Patients Completed 11/21/2023 HPV Vaccines Aged Out No longer eligi [...] Insurance MEDICARE MEDICAID - [place] Care Teams Manufacturing Quality Technician Relationship Specialty Start Date End Date Elisa Hobbs MD [address] [place] [address] PCP - General Internal Medicine 05/02/24
== END 2025-01-17 11:32 | disposition home or self-care (01) ==
LOC: HO.PMC 10:09
PROVIDERS: PCP Internal Medicine; Visit Provider Registered Nurse Emergency
DX: E11.40 Type 2 diabetes mellitus with diabetic neuropathy, unspecified (principal); M94.0 Chondrocostal junction syndrome [Tietze]; M54.6 Pain in thoracic spine; M47.814 Spondylosis without myelopathy or radiculopathy, thoracic region; G89.4 Chronic pain syndrome; Z85.07 Personal history of malignant neoplasm of pancreas
CPT/HCPCS: 17999; 99214; G2211

== ENCOUNTER 2025-01-17 10:08 | Outpatient (REF) | payer MEDICARE, MEDICAID, SELFPAY ==
--- NOTE | ~2025-01-17 | XR_ITS ---
EXAMINATION: XR CHEST 2 VIEWS HISTORY: M94.0 - Chondrocostal junction syndrome [Tietze] COMPARISON: There are no prior studies available for comparison. FINDINGS: PA and lateral views of the chest are submitted. The lungs are expanded and clear. There is no pleural effusion, pneumothorax, or pulmonary vascular congestion. The heart is normal in size. The bones are intact. XR/XR chest 2V IMPRESSION: Clear lungs. Electronically signed by: Cruz Mortensen MD 01/17/2025 12:19 PM EDT
--- NOTE | ~2025-01-17 | XR_ITS ---
EXAMINATION: XR THORACIC SPINE 3 VIEWS HISTORY: M54.6 - Pain in thoracic spine COMPARISON: There are no prior studies available for comparison. FINDINGS: AP and lateral views of the thoracic spine are submitted. Osseous mineralization is normal. The vertebral bodies maintain normal height and alignment without evidence of fracture or subluxation. There is mild degenerative disc disease with disc space narrowing and osteophyte formation. The visualized paraspinal soft tissues are unremarkable. XR/XR thoracic spine 3V IMPRESSION: Mild degenerative disc disease. Electronically signed by: Cruz Mortensen MD 01/17/2025 12:20 PM EDT
== END 2025-01-17 10:09 | disposition home or self-care (01) ==
LOC: HO.XRAY 10:08
PROVIDERS: PCP Internal Medicine; Visit Provider Registered Nurse Emergency
DX: E11.40 Type 2 diabetes mellitus with diabetic neuropathy, unspecified (principal); M47.814 Spondylosis without myelopathy or radiculopathy, thoracic region; M94.0 Chondrocostal junction syndrome [Tietze]; M54.6 Pain in thoracic spine; G89.4 Chronic pain syndrome; Z85.07 Personal history of malignant neoplasm of pancreas
CPT/HCPCS: 17999; 71046; 72072; 99212; J7336

== ENCOUNTER → 2025-01-17 11:50 | Outpatient (BNV) | payer MEDICARE, MEDICAID, SELFPAY | PROVIDERS: PCP Internal Medicine; Visit Provider Radiology Diagnostic Radiology | DX: M54.6 Pain in thoracic spine (principal); M94.0 Chondrocostal junction syndrome [Tietze] | CPT/HCPCS: 71046; 72072 ==

== ENCOUNTER 2025-03-14 10:43 | Outpatient (AMB) | payer MEDICARE, MEDICAID, SELFPAY ==
[2025-03-14 10:45] VITALS: BP 134/84; PULSE 104; RESP 16; O2SAT 96; BMI 31.3
--- NOTE | 2025-03-14 10:45 | MHC.OFFVIS ---
Vital Signs 03/14/25 10:45 Height 6 ft 5 in Weight 264 lb BMI 31.3 BP 134/84 Blood Pressure Location Rt brachial Position Sitting Respiration 16 Pulse 104 H Pulse Source Pulse Oximeter Pulse Oximetry (%) 96 Oxygen Delivery Method Room Air Intake Visit Reasons: Discuss X-Ray Results Educational Paraprofessional Required: No Accompanied by: Self / Same As Patient Allergies Atorvastatin Allergy (Unknown, Uncoded 09/18/24 09:21) Myalgia HPI Comments Details: The patient is a 59-year-old male presenting with chronic pain management concerns, thoracic back pain and review of recent x-rays. The patient reports significant pain, particularly at night, disrupting his sleep. The pain begins in the mid back and radiates to the front, affecting the sternum and ribs. He has tried medications such as tramadol and pregabalin, which have not provided relief and caused side effects. He is unable to take nonsteroidal anti-inflammatory medications secondary to current use of Eliquis. X-rays reviewed, results as per below Patient unable to tolerate physical therapy as it is too painful. - Onset: Pain is chronic and worsens at night, disrupting sleep. - Quality: Pain radiates from the back to the sternum and ribs. - Exacerbating factors: Lying down increases pain. - Relieving factors: None identified; medications have been ineffective. - Affect: Pain significantly impacts sleep and daily functioning. - Analgesia: Tramadol and pregabalin have been used but are ineffective. - Adverse Effects: Pregabalin caused side effects, leading to discontinuation. - Activities of Daily Living: Pain interferes with sleep and daily activities. - Aberrant Drug Related Behaviors: None reported. FOR[facility] Medical History (Updated 03/14/25 @ 12:50 by Ninoska Vogel APRN, LYE BATH OPERATOR) Thyroid cancer Current use of anticoagulant therapy Hypertension High cholesterol Hypothyroid Pancreatic cancer Surgical History (Updated 08/21/24 @ 12:33 by Ninoska Vogel APRN, LYE BATH OPERATOR) History of back surgery History of hip surgery H/O splenectomy Review of Systems Narrative - Musculoskeletal: Reports chronic pain radiating from the back to the sternum and ribs. - Neurological: Denies relief from tramadol and pregabalin. Physical Exam Exam Exam: General: awake, alert, oriented. Answers questions appropriately. Fully engaged in examination. Skin: warm, dry, intact. No wounds, rashes or lesions noted. HEENT: Normocephalic. Hearing intact. Cardiac: External chest normal in appearance. Respiratory: No cough, audible wheezing or stridor. Minimally tender over anterior bilateral lower ribs. Abdomen: without gross distension. MS: No obvious swelling or deformities. Thoracic spine: Tenderness to palpation midline thoracic vertebrae and paraspinal muscles. Neurological: Oriented to person, place, time and situation. Thought process intact. No gait abnormalities appreciated. Psychiatric: Appropriate mood and affect. Good judgment and insight. Vital Signs: Last Vital Signs Pulse 104 H 03/14/25 10:45 Resp 16 03/14/25 10:45 BP 134/84 03/14/25 10:45 Pulse Ox 96 03/14/25 10:45 Oxygen Delivery Method Room Air 03/14/25 10:45 BMI result Body Mass Index 31.3 Results Reviewed Results Reviewed: 01/17/25 XR/XR thoracic spine 3V FINDINGS: AP and lateral views of the thoracic spine are submitted. Osseous mineralization is normal. The vertebral bodies maintain normal height and alignment without evidence of fracture or subluxation. There is mild degenerative disc disease with disc space narrowing and osteophyte formation. The visualized paraspinal soft tissues are unremarkable. IMPRESSION: Mild degenerative disc disease 01/17/25 chest x-ray FINDINGS: PA and lateral views of the chest are submitted. The lungs are expanded and clear. There is no pleural effusion, pneumothorax, or pulmonary vascular congestion. The heart is normal in size. The bones are intact. IMPRESSION: Clear lungs. Assessment & Plan Assessment & Plan (1) Chronic pain syndrome: Code(s): G89.4 - Chronic pain syndrome Category: Medical (2) Post laminectomy syndrome: Code(s): M96.1 - Postlaminectomy syndrome, not elsewhere classified Category: Medical (3) Thoracic back pain: Code(s): M54.6 - Pain in thoracic spine Category: Medical (4) Thoracic radiculopathy: Code(s): M54.14 - Radiculopathy, thoracic region Category: Medical (5) Costochondritis: Code(s): M94.0 - Chondrocostal junction syndrome [Tietze] Category: Medical (6) Thoracic spondylosis: Code(s): M47.814 - Spondylosis without myelopathy or radiculopathy, thoracic region Category: Medical (7) Diabetic neuropathy: Code(s): E11.40 - Type 2 diabetes mellitus with diabetic neuropathy, unspecified Category: Medical (8) Diabetes: Code(s): E11.9 - Type 2 diabetes mellitus without complications Category: Medical (9) History of pancreatic cancer: Code(s): Z85.07 - Personal history of malignant neoplasm of pancreas Category: Medical Plan The patient will undergo an MRI to obtain better imaging of the thoracic region, as current x-rays have not revealed significant findings. The MRI will be conducted at an open MRI facility in [place] to accommodate the patient's preference for open machines due to discomfort with closed spaces. The patient is advised to discontinue pregabalin due to side effects and lack of efficacy, and to continue monitoring pain levels. Patient has exhausted conservative treatment. Unable to tolerate physical therapy secondary to pain. Patient was informed and verbally consented to the use of an ambient scribe for clinic note documentation during this visit. Orders: Orders MR thoracic spine wo con Today G89.4 - Chronic pain syndrome, M54.14 - Radiculopathy, thoracic region, M54.6 - Pain in thoracic spine, M96.1 - Postlaminectomy syndrome, not elsewhere classified Coding Level of Care Code Est Pt Level 3 (71903) Complex EM visit Add On G2211 Diagnoses Chronic pain syndrome G89.4 Post laminectomy syndrome M96.1 Thoracic back pain M54.6 Thoracic radiculopathy M54.14 Costochondritis M94.0 Thoracic spondylosis M47.814 Diabetic neuropathy E11.40 Diabetes E11.9 History of pancreatic cancer Z85.07
--- OUTSIDE RECORDS SUMMARY | 2025-03-14 12:08 | XMS_ITS | Data Portability ---
Author Organization [place] - [facility], Allergy Address [address] [place] [id number] Care Team Providers Care Director Business Integration Name Role Phone CARITO ASCENCIO Primary Care Provider [phone] LALY CONTRERAS OTHER Assessment Encounter Date Assessment Date Assessment LastModified by Organization Details LastModified Time 01/10/2025 01/10/2025 Star jeter has mixed sleep apnea, including obstructive and central components, as demonstrated by a sleep study dated November 09, 2023. Given his complex mixed sleep apnea, the CPAP machine remains the best option for managing his sleep apnea, but he has difficulty tolerating it due to claustrophobia and limited sleep duration. Surgical intervention to address his nasal septum deviation may improve daytime breathing but will not resolve his sleep apnea. I discussed the risks and benefits of septoplasty, including potential weakening of the nasal structure and the possibility of septal perforation. Given the significant crookedness at the front part of his nasal septum, I recommended consultation with Dr. Flaherty, who specializes in this type of repair and overlaps with cosmetic considerations. This surgery is typically performed as an outpatient procedure. I will send the relevant information to Dr. Contreras, who is managing his sleep apnea, to ensure continuity of care. Star Quigley is scheduled for a follow-up appointment on January 14 with the sleep center, where further modifications to his CPAP machine may be explored to improve tolerance. [email or web address] Not available 01/10/2025 16:39:40 01/16/2025 01/16/2025 1. Nasal obstruction 2. Nasal septal deviation 3. Inferior turbinate hypertrophy Given these findings, we discussed the option of septorhinoplasty with inferior turbinate reduction. History and physical exam confirm the presence of functional nasal obstruction secondary to septal deviation. Conservative medical management has failed, and septoplasty alone will not alleviate the obstruction therefore I would proceed with septorhinoplasty with inferior turbinate reduction with possible auricular cartilage grafting and costal cartilage grafting. The nasal obstruction is significant and impacts daily living; there it is medically warranted. We discussed the risks, benefits and alternatives of nasal surgery. The risks include, but are not limited to: bleeding, infection, columellar scar, failure to resolve symptoms, septal perforation, residual external nasal deformity, irregularities in the nasal contour, nasal skin and or teeth numbness and need for further surgery. If costal cartilage is required, this would also incur a risk of pneumothorax. The patient understands the risks and benefits of the procedure and would like to proceed. Photo Consent: For clinical purposes, photographs were taken of the patient. Written consent was obtained indicating all photos are to be stored securely, and used and managed by Dr. Flaherty. Needs to stop eliquis 2 days prior to surgery [email or web address] Not available 01/16/2025 14:28:09 Plan of Treatment Reminders Order Date Submit Date Provider Last Modified By Organization Details Last Modified Time Details Appointments None recorded. Lab None recorded. Referral None recorded. Procedures None recorded. Surgeries rhinoplast y (SURG) 2024 025 [email or web address] Not available 14:43:07 Imaging None recorded. Medication Orders None recorded. Patient TargetsNo targets recorded. Patient Instructions Encounter Date Encounter Id Patient Instructions Last Modified By Organization Details Last Modified Time 01/10/2025 [id number] - Schedule an appointment with Dr. Sheets to discuss septoplasty. - Follow up with Dr. Contreras on January 14 for further evaluation and CPAP modifications. [email or web address] Not available 01/10/2025 16:36:54 Please note: Parts of this encounter note have been generated by AI based on audio conversation. Patient consent was required prior to utilizing this technology. Content review was required prior to finalizing the note. [email or web address] Not available 01/10/2025 16:36:54 Reason for Referral None Reported. Problems Name Problem SNOMED Code Status Onset Date Resolution Date Notes Provider Name and Address Organization Details Recorded Time Mixed sleep apnea 605151530 Active 2024 JULISSA PAK MD [address] [facility], [place], [address], [facility] - [facility] 16:29:25 Deviated nasal septum 203133009 Active 2024 NOHEMY FLAHERTY MD [address] [facility] [address], [place], [address], [place] - [facility] 14:27:58 Nasal obstruction 794742251 Active 2024 NOHEMY FLAHERTY MD [address] [facility] [address], [place], [address], [place] - [facility] 14:27:58 Hypertrophy of nasal turbinates 95549024 Active 2024 NOHEMY FLAHERTY MD [address] [facility] [address], [place], [address], [place] - [facility] 14:27:59 Problem Notes None recorded. Procedures Surgical History Date Name Laterality Status Provider Name and Address Organization Details Recorded Time FOL_DP completed JULISSA PAK MD [address], [address], [facility] - [facility] 01/10/2025 16:29:05 Thyroid Surgery completed TERENCE NIEVES [place] - [facility] 01/10/2025 16:05:24 repair of hip completed TERENCE NIEVES [place] [facility] 01/10/2025 16:05:38 Imaging Results None recorded. Procedure Notes None recorded. Medical Equipment None Reported. Allergies Allergen ID Allergen Name Allergen Category Reaction Reaction Severity Criticality Documentation Date Start Date Code Code System Note Provider Name and Address Organization Details Recorded Time 647611 atorvasta tin medicatio n Not available Not available Not available 01/10/2025 96944 RxNorm TERENCE quevedo [place] - [facility] 16:04:25 916585 Januvia medicatio n Not available Not available Not available 01/10/2025 75150 6 RxJorge Alberto quevedo [place] - [facility] 16:04:41 Medications Name Sig Start Date Stop Date Status Note LastModified by Organization Details LastModified Time gabapentin 600 mg tablet 01/10 completed Not Available Not Available Not Available tizanidine 2 mg tablet active Not Available Not Available Not Available cetirizine 10 mg tablet TAKE 1 TABLET BY MOUTH EVERY DAY active Not Available Not Available No t Available Synthroid 100 mcg tablet active Not Available Not Available Not Available tramadol 50 mg tablet active Not Available Not Available No t Available acetaminoph en 500 mg tablet active Not Available Not Available Not Available lidocaine-p rilocaine 2.5 %-2.5 % topical cream active Not Available Not Available Not Available hydrocortis one 1 % topical cream active Not Available Not Available Not Available triamcinolo ne acetonide 0.1 % topical ointment 01/16 completed Not Available Not Available Not Available polymyxin B sulfate 10,000 unit-trimet hoprim 1 mg/mL eye drops INSTILL 1 DROP INTO AFFECTED EYE EVERY 3 HOURS FOR 7 DAYS 01/16 completed Not Available Not Available Not Available pravastatin 20 mg tablet active Not Available Not Available Not Available metoprolol succinate ER 25 mg tablet,exte nded release 24 hr active Not Available Not Available Not Available polyethylen e glycol 3350 17 gram/dose oral powder 01/10 completed Not Available Not Available Not Available fluticasone propionate 50 mcg/actuati on nasal spray,suspe nsion TAKE 2 SPRAYS (INTRANAS AL) DAILY FOR 90 DAYS ADMINISTE R INTO EACH NOSTRIL active Not Available Not Available No t Available oxycodone 5 mg tablet 01/16 completed Not Available Not Available Not Available Synthroid 137 mcg tablet active Not Available Not Available Not Available insulin aspart (U-100) 100 unit/mL (3 mL) subcutaneou s pen active Not Available Not Available Not Available Alcohol Prep Pads active Not Available Not Available No t Available pregabalin 50 mg capsule 01/16 completed Not Available Not Available Not Available pregabalin 75 mg capsule 01/16 completed Not Available Not Available Not Available pregabalin 100 mg capsule active Not Available Not Available Not Available Lantus Solostar U-100 Insulin 100 unit/mL (3 mL) subcutaneou s pen active Not Available Not Available Not Available diclofenac 1 % topical gel 01/10 completed Not Available Not Available Not Available Eliquis 5 mg tablet active Not Available Not Available No t Available naloxone 4 mg/actuatio n nasal spray active Not Available Not Available Not Available Fiasp FlexTouch U-100 Insulin 100 unit/mL (3 mL) subcutaneou s pen 01/10 completed Not Available Not Available Not Available Lidocaine Pain Relief 4 % topical patch active Not Available Not Available Not Available Gvoke HypoPen 2-Pack 1 mg/0.2 mL subcutaneou s auto-inject or active Not Available Not Available Not Available insulin glargine-yf gn (U-100) 100 unit/mL (3 mL) subcutaneou s pen active Not Available Not Available Not Available Lanie Pen Needle 32 gauge x active Not Available Not Available Not Available Vitals Date Recorded Body height Body mass index (BMI) Body weight Provider Name and Address Organization Details Last Updated DateTime 01/10/2025 195.58 cm 35 kg/m2 579826.75 g TERENCE NIEVES [place] - [facility] 01/10/2025 16:02:50 Social History None recorded. Functional Status Question Answer Note LastModified by Organization D etails LastModified Time What is your level of alcohol consumption? None [email or web address] Information not available 01/10/2025 Mental Status None recorded. Family History Nothing Reported. Medical History Condition Response Cancer Y Thyroid Problems Y Past Encounters Encounter ID Performer Location Encounter Start Date Encounter Closed Date Diagnosis/Indication Diagnosis SNOMED-CT Code Diagnosis ICD10 Code Diagnosis IMO Codes Diagnosis Note [id number] JULISSA PAK MD [facility] [address] [phone] 01/10/2025 15:42:00 01/10/2025 16:40:35 Mixed sleep apnea 871514193 G47.39 006788 Deviated nasal septum 12 2602955 J34.2 628065 [id number] NOHEMY FLAHERTY MD [facility] [address] [address] 01/16/2025 13:41:53 01/16/2025 15:30:25 Deviated nasal septum 585664197 J34.2 40207 Nasal obstruction 496082 000 J34.89 22533 Hypertroph y of nasal turbinates 18690380 J34.3 2532 Health Concerns Section Related Observation LastModified by Organization Detai ls LastModified Time None Recorded Concern Status LastModified by Organization Details LastModified Time None Recorded Advance Directives Directive None Recorded Payers Insurance Date Sequence Insurance Name Policy Number Policy Mchugh Covered Member ID Mchugh Member ID Guarantor Name 01/16/2025 2 [place] [facility] Star Ansari [id number] Star Quigley 01/16/2025 1 [place] [employer] Star Quigley [id number] Star Quigley Notes Date Note Type Note Provider Name and Address Organization Details Recorded Time 5 text/html IPad - [place] ANTHONY 11/09/23 Home [facility] BMI 33 AHI 57.6, medicare 46.4 central and mixed 143/423 events 33% CPAP trial - intolerant Star Quigley is a 59-year-old male who presents for evaluation of sleep apnea and nasal obstruction. He reports difficulty tolerating the CPAP machine due to claustrophobia and limited sleep duration of three to four hours while using it. He has a history of thyroid removal due to cancer and experiences significant difficulty breathing through his nose, particularly on the right side due to a deviated nasal septum. He expresses interest in exploring surgical options to improve nasal airflow, as the obstruction affects his breathing during the day and night. He denies any history of nasal trauma or drug use affecting the nasal passages. JULISSA PAK MD [address] [place] [address], [phone], [facility] - [facility] 01/10/2025 16:39:58 5 text/html ROS as noted in the HPI He has a history of severe OSAHe was told he should have nose surgery to help with CPAP use On a scale of 1 to 10, with 1 being the worst and 10 being the best, nasal breathing on each side is scored as follows:Right: 06/24Left: ssociated symptoms: obstructionMedications trialed: flonase prnHistory of seasonal allergies: noHistory of prior nasal trauma: noHistory of recurrent, acute, or chronic sinusitis: noHistory of prior nasal surgery: noNo smoking vaping or marijuana use on Eliquis for hx of pancreatic ca NOHEMY FLAHERTY MD [address] [place] [address], [place], [address], [facility] - [facility] 01/16/2025 14:28:34
== END 2025-03-14 11:06 | disposition home or self-care (01) ==
LOC: HO.PMC 10:43
PROVIDERS: PCP Internal Medicine; Visit Provider Registered Nurse Emergency
DX: G89.4 Chronic pain syndrome (principal); M96.1 Postlaminectomy syndrome, not elsewhere classified; M54.6 Pain in thoracic spine; M54.14 Radiculopathy, thoracic region; M94.0 Chondrocostal junction syndrome [Tietze]; M47.814 Spondylosis without myelopathy or radiculopathy, thoracic region; E11.40 Type 2 diabetes mellitus with diabetic neuropathy, unspecified; Z85.07 Personal history of malignant neoplasm of pancreas
CPT/HCPCS: 99213; G2211

== ENCOUNTER → 2025-03-14 10:43 | Outpatient (BNVA) | payer MEDICARE, MEDICAID, SELFPAY | PROVIDERS: PCP Internal Medicine; Visit Provider Registered Nurse Emergency | DX: G89.4 Chronic pain syndrome (principal); M96.1 Postlaminectomy syndrome, not elsewhere classified; M54.6 Pain in thoracic spine; M54.14 Radiculopathy, thoracic region; M94.0 Chondrocostal junction syndrome [Tietze]; M47.814 Spondylosis without myelopathy or radiculopathy, thoracic region; E11.40 Type 2 diabetes mellitus with diabetic neuropathy, unspecified; Z85.07 Personal history of malignant neoplasm of pancreas | CPT/HCPCS: 99212 ==

== ENCOUNTER 2025-05-02 10:53 | Outpatient (AMB) | payer MEDICARE, MEDICAID, SELFPAY ==
--- NOTE | 2025-05-02 10:54 | A.OFFVIS_ITS ---
Vital Signs 05/02/25 10:55 05/02/25 11:26 05/02/25 11:42 Height 6 ft 5 in Weight 289 lb BMI 34.3 BP 123/83 137/90 H 118/79 Blood Pressure Location Lt brachial Lt brachial Lt brachial Position Sitting Sitting Sitting Respiration 16 16 16 Pulse 97 91 89 Pulse Source Pulse Oximeter Pulse Oximeter Pulse Oximeter Pulse Oximetry (%) 94 95 96 Oxygen Delivery Method Room Air Room Air Room Air Intake Visit Reasons: Qutenza/MRI results Accompanied by: Self / Same As Patient Allergies Atorvastatin Allergy (Unknown, Uncoded 09/18/24 09:21) Myalgia HPI Comments Details: History of Present Illness The patient is a 59-year-old male presenting with chronic thoracic back pain that adversely affects his quality of life. He reports the pain as predominantly nocturnal, bilateral, and radiating to the sides, which gravely disrupts his sleep. This pain has proven unresponsive to Tramadol and previous medications such as gabapentin and Lyrica were discontinued due to negative cerebral effects. Importantly, two prior lumbar surgeries, with the latest in 2014, successfully addressed his prior neurological symptoms but did not prevent the onset of the current back pain. His medical narrative is complicated by type 2 diabetes, atrial fibrillation requiring anticoagulation, and a recent diagnosis of a growing brain tumor necessitating additional evaluation. His diabetes management is challenging due to significant hyperglycemia that limits his steroid treatment options, further complexifying his back pain management due to elevated stroke risk when interrupting Eliquis. Socially, he actively participates in bahai activities and possesses a strong inclination for understanding and addressing his conditions through specialist consultation. Patient previously underwent back surgery with Dr. Stanley and would like a referral to discuss his thoracic back pain. Pain Description - Onset and Timing: Chronic, significantly exacerbates at night disrupting sleep. - Location and Radiation: Bilateral back pain radiating to the sides. - Exacerbating Factors: Worsens with attempts at sleep, deep breathing, and certain movements like breathing while bending over. - Relieving Factors: Slight improvement noted when sleeping on his side. - Interference with Function: Severely impacts sleep and overall quality of life. - Associated Symptoms: Experiences shortness of breath and dizziness on bending forward. Pain Management - Affect: Reports severe impact on quality of life, particularly noting distress when preparing to sleep. - Analgesia: Tramadol reported as ineffective; previous medications gabapentin and Lyrica discontinued due to negative impacts on mental clarity. - Adverse Effects: Significant cognitive impact from past use of gabapentin or Lyrica. - Activities of Daily Living: Sleep is impacted, must lie on his side for comfort. - Aberrant Drug Related Behaviors: Does not wish to use opioids regularly. Results - Labs: HbA1c recorded at 7.9. - Brain Imaging: New tumor identified near the scalp. [facility] Medical History (Updated 03/14/25 @ 12:50 by Ninoska Vogel APRN, BOTTOM SCRUBBER) Thyroid cancer Current use of anticoagulant therapy Hypertension High cholesterol Hypothyroid Pancreatic cancer Surgical History (Updated 08/21/24 @ 12:33 by Ninoska Vogel APRN, BOTTOM SCRUBBER) History of back surgery History of hip surgery H/O splenectomy Review of Systems Narrative Review of Systems - Constitutional: Reports poor quality of life. - Respiratory: Reports dyspnea and pain on deep inspiration. - Cardiovascular: History of atrial fibrillation and thromboembolic events. - Musculoskeletal: Reports chronic bilateral back pain with side radiation. - Neurological: Reports dizziness when bending. - Endocrine: History of diabetes and pituitary tumor. Physical Exam Exam Exam: General: awake, alert, oriented. Answers questions appropriately. Fully engaged in examination. Skin: warm, dry, intact. No wounds, rashes or lesions noted. HEENT: Normocephalic. Hearing intact. Cardiac: External chest normal in appearance. Respiratory: No cough, audible wheezing or stridor. Minimally tender over anterior bilateral lower ribs. Abdomen: without gross distension. MS: No obvious swelling or deformities. Thoracic spine: Tenderness to palpation midline thoracic vertebrae and paraspinal muscles. Neurological: Oriented to person, place, time and situation. Thought process intact. No gait abnormalities appreciated. Psychiatric: Appropriate mood and affect. Good judgment and insight. Vital Signs: Last Vital Signs Pulse 89 05/02/25 11:42 Resp 16 05/02/25 11:42 BP 118/79 05/02/25 11:42 Pulse Ox 96 05/02/25 11:42 Oxygen Delivery Method Room Air 05/02/25 11:42 BMI result Body Mass Index 34.3 Office Procedures Topical Capsaicin Date 1:: 10/23/24 Date 2:: 01/17/25 Date 3:: 05/02/25 Laterality: Bilateral Office Meds capsaicin-skin cleanser 8 % topical kit Performing Provider: Ninoska Vogel APRN, GUNJAN Performing Location: [facility] [place] [facility] Administered by: Ninoska Vogel APRN, BOTTOM SCRUBBER on 05/02/25 11:57 Dose Route Admin Location Dispensed Lot Number Expiration Date NDC Director Of Design 2 ea topical 2 ea [id number] 04/14/26 41209-076-10 MISAEL MURDOCK Total Dispensed Waste 2 ea 0 % Comments: Patient applied topical EMLA cream to both feet prior to arrival for his scheduled appointment. Feet exposed, no wounds, rashes or breaks in skin noted. Light touch sensation intact bilaterally. Two single use topical patches divided between feet, 1 patch per foot, wrapped and secured per package instructions. Patient monitored throughout the procedure with BP checks every 15 minutes. He tolerated the 30 minute application well. Assessment & Plan Assessment & Plan (1) Diabetic neuropathy: Code(s): E11.40 - Type 2 diabetes mellitus with diabetic neuropathy, unspecified Category: Medical (2) Thoracic radiculopathy: Code(s): M54.14 - Radiculopathy, thoracic region Category: Medical Plan Plan Management of the chronic bilateral radiating back pain revolves around cautious exploration of treatment interventions, emphasizing safety given this patient's diabetes and atrial fibrillation. Epidural steroid injections were discussed but deferred due to high risks involving hyperglycemia and anticoagulation interruption. A referral to neurosurgery, ideally with Dr. Stanley, is underway to further evaluate these concerns, with the patient ready for consultation. We considered diagnostic branch blocks with local anesthetic only to stratify potential options like nerve stimulation therapies, which rule out steroid use and effectively manage diabetes and anticoagulation-related concerns. To address acute pain episodes, a singular prescription of oxycodone has been sanctioned contingent on primary care coordination. We aim for a combined, structured approach to his pain management under specialist guidance. Patient is aware that this is a one time prescription, should this provide relief refills should be discussed with his pcp. Schedule for fluoroscopy guided bilateral T9 T10 T11 MBBs with local anesthetic. Per Dr. Warren patient does not need to stop Eliquis prior to this procedure. Patient was informed and verbally consented to the use of an ambient scribe for clinic note documentation during this visit. Discussion Notes I reviewed and discussed the MRI findings. We explored treatment options, acknowledging the risks of steroid use due to his diabetes and anticoagulation needs. I explained why epidural injections might be inappropriate, while introducing diagnostic medial branch blocks, which are devoid of steroids and maintain anticoagulation. We conversed about consulting Dr. Stanley for specialist evaluation. Understanding and consenting to these approaches, the patient prefers trialing pain interventions like nerve stimulators post- diagnostic injections. I confirmed a single oxycodone prescription to take as needed as a provisional resolution for severe pain, endorsing primary care discussion for any further analgesic prescriptions. Agreed upon refilling existing topical anesthesia for foot discomfort and organizing neurosurgical referral. Patient Instructions - Await a call for a neurosurgery appointment, ideally with Dr. Stanley. - Bring your MRI report to the neurosurgery appointment. - Continue taking Eliquis as prescribed. - Take the cream for your feet as needed during painful episodes. - Follow up with your primary care doctor about ongoing pain medicine prescriptions. Orders: Orders AMB Capsaicin Patch - Practice Supplied Today E11.40 - Type 2 diabetes mellitus with diabetic neuropathy, unspecified Referrals Neurosurgery Referral M54.14 - Radiculopathy, thoracic region Medications: New oxycodone discontinue Tramadol prior to starting this medication 5 mg PO BID PRN 30 tabs 0RF pain Refilled lidocaine-prilocaine 2.5-2.5 % cleanse feet thoroughly, apply to both feet 30 minutes prior to appointment. 1 appl topical ONCE 30 grams 3RF preprocedure Coding Level of Care Code Est Pt Level 4 (00261) Add On Problem Visit Only Diagnoses Diabetic neuropathy E11.40 Thoracic radiculopathy M54.14
[2025-05-02 10:55] VITALS: BP 123/83; PULSE 97; RESP 16; O2SAT 94; BMI 34.3
[2025-05-02 11:26] VITALS: BP 137/90; PULSE 91; RESP 16; O2SAT 95
[2025-05-02 11:42] VITALS: BP 118/79; PULSE 89; RESP 16; O2SAT 96
--- OUTSIDE RECORDS SUMMARY | 2025-05-02 12:45 | XMS_ITS | Data Portability ---
Author Organization [place] [facility], Allergy Address [address] [place] [id number] Care Team Providers Care Music Director Name Role Phone CARITO ASCENCIO Primary Care Provider [phone] LALY CONTRERAS OTHER Assessment Encounter Date Assessment [...] By Organization Details Last Modified Time 01/10/2025 65426 - Schedule an appointment with Dr. Sheets [...] Organization Details Recorded Time Mixed sleep apnea 179645491 Active 2024 JULISSA PAK MD [address] [facility], [place], [address], [facility] - [facility] 16:29:25 Deviated nasal septum 290195919 Active 2024 NOHEMY FLAHERTY MD [address] [facility] [address], [place], [address], [place] [facility] 14:27:58 Nasal obstruction 195720792 Active 2024 NOHEMY FLAHERTY MD [address] [facility] [address], [place], [address], [place] [facility] 14:27:58 Hypertrophy of nasal turbinates 60787399 Active 2024 NOHEMY FLAHERTY MD [address] [facility] [address], [place], [address], [place] [facility] 14:27:59 Problem Notes None recorded. Procedures Surgical History Date Name Laterality Status Provider Name and Address Organization Details Recorded Time FOL_DP completed JULISSA PAK MD [address], [address], [facility] - [facility] 01/10/2025 16:29:05 Thyroid Surgery completed TERENCE NIEVES [facility] 01/10/2025 16:05:24 repair of hip completed TERENCE NIEVES [facility] 01/10/2025 16:05:38 Imaging Results None recorded. Procedure Notes None recorded. Medical Equipment None Reported. Allergies Allergen ID Allergen Name Allergen Category Reaction Reaction Severity Criticality Documentation Date Start Date Code Code System Note Provider Name and Address Organization Details Recorded Time 777341 atorvasta tin medicatio n Not available Not available Not available 01/10/2025 20732 RxNorm TERENCE quevedo [place] - [facility] 16:04:25 573898 Januvia medicatio n Not available Not available Not available 01/10/2025 68305 6 RxNopascual quevedo [place] [facility] 5 16:04:41 578601 sitaglipt in medicatio n Not available Not available Not available 04/07/2025 45203 1 RxNorm Not Available leif - External Data Service - prod 5 08:23:28 Medications Name Sig Start Date Stop Date [...] Available Lanie Pen Needle 32 gauge x 5/32 active Not Available Not Available Not Available Vitals Date Recorded Body height Body mass index (BMI) Body weight Provider Name and Address Organization Details Last Updated DateTime 01/10/2025 195.58 cm 35 kg/m2 997664.75 g TERENCE NIEVES [place] [facility] 01/10/2025 16:02:50 Social History None recorded. Functional [...] ICD10 Code Diagnosis IMO Codes Diagnosis Note [id number] JULISSA PAK MD [facility] [address] [address] 01/10/2025 15:42:00 01/10/2025 16:40:35 Mixed sleep apnea [id number] G47.39 070429 Deviated nasal septum 12 7914432 J34.2 669705 [id number] NOHEMY FLAHERTY MD [facility] [address] [place] [address] 01/16/2025 13:41:53 01/16/2025 15:30:25 Deviated nasal septum 041432831 J34.2 90202 Nasal obstruction 450984 000 J34.89 22098 Hypertroph y of nasal turbinates 01378772 J34.3 2532 Health Concerns Section Related Observation LastModified by Organization Detai ls LastModified Time None Recorded Concern Status LastModified by Organization Details LastModified Time None Recorded Advance Directives Directive None Recorded Payers Insurance Date Sequence Insurance Name Policy Number Policy Mchugh Covered Member ID Mchugh Member ID Guarantor Name 01/16/2025 2 [place] Star Ansari [id number] Star Quigley 01/16/2025 1 [place] [employer] Star Quigley [id number] Star Quigley Notes Date Note Type Note Provider Name and Address Organization Details Recorded Time 5 text/html IPad - Amharic ANTHONY 11/09/23 Home [facility] BMI 33 [...] affecting the nasal passages. JULISSA PAK MD [address] [place] [address], [place], [address], [facility] - [facility] 01/10/2025 16:39:58 5 text/html ROS as noted in the HPI He has a history of severe OSAHe was told he should have nose surgery to help with CPAP use On a scale of 1 to 10, with 1 being the worst and 10 being the best, nasal breathing on each side is scored as follows:Right: 2/10Left: 9/10Associated symptoms: obstructionMedications trialed: flonase prnHistory of seasonal allergies: noHistory of prior nasal trauma: noHistory of recurrent, acute, or chronic sinusitis: noHistory of prior nasal surgery: noNo smoking vaping or marijuana use on Eliquis for hx of pancreatic ca NOHEMY FLAHERTY MD [address] [place] [address], [address], [facility] - [facility] 01/16/2025 14:28:34
--- OUTSIDE RECORDS SUMMARY | 2025-05-02 12:45 | XMS_ITS | Clinical Summary ---
Author Organization [address] [place] [address] Address [address] [place] [address] Phone Care Team Providers Care Unscrambler Name Role Phone JamesElisa Fontaine MD Primary Care Provider [phone] Allergies Active Allergy Reactions Criticality Noted Date Comments Atorvastatin 07/31/2024 Sitagliptin 07/31/2024 Medications ammonium lactate (AmLactin) 12 % lotion Apply topically if needed for dry skin. 400 g 5 03/19/20 26 Active Encounters Date Type Department Care Team Description 03/19/2025 10:00 AM EST Office Visit Orthopedic Surgery - [place] [address] [facility] [address] [place] [address] Artem Orellana, DPM Ingrowing nail (Primary Dx); Diabetic mononeuropathy simplex (CMS/[facility] V24, CMS/[facility] V28); Verruca plantaris; Metatarsalgia of both feet; Type 2 diabetes mellitus with foot ulcer (CODE) (CMS/HCC V24, CMS/[facility] V28); Type II diabetes mellitus with peripheral circulatory disorder (CMS/[facility] V24, CMS/[facility] V28) from Last 3 Months Social History Tobacco [...] Care Team (Late st Contact Info) Description 05/12/2025 9:45 AM EST Office Visit Orth[facility] Surgery - [place] [address] [address] Artem Orellana, DPM [address] [address] Health Maintenance Due Date Last Done Comments Colorectal Cancer Screening: Colonoscopy 1963 Diabetes: Annual GFR (Glomerular Filtration Rate) 1963 Diabetes: Annual Foot Exam 1973 Diabetes: Annual Retina Eye Exam 1973 Hepatitis B Vaccines (2 of 2 - CpG 2-dose series) 01/02/2024 12/05/2023 Cholesterol Screening (Lipid Panel) 05/02/2024 Diabetes: Annual Urine Albumin-Creatinine Ratio (uACR) [...] this topic Meningococcal ACWY Vaccine Aged Out 03/20/2023, No longer eligible based on patient's age [...] Insurance MEDICARE MEDICAID - [place] Care Teams Unscrambler Relationship Specialty Start Date End Date Elisa Hobbs MD [address] [place] [address] PCP - General Internal Medicine 05/02/24
== END 2025-05-02 11:46 | disposition home or self-care (01) ==
LOC: HO.PMC 10:53
PROVIDERS: PCP Internal Medicine; Visit Provider Registered Nurse Emergency
DX: E11.40 Type 2 diabetes mellitus with diabetic neuropathy, unspecified (principal); M54.14 Radiculopathy, thoracic region
CPT/HCPCS: 99214; G2211

== ENCOUNTER → 2025-05-02 10:53 | Outpatient (BNVA) | payer MEDICARE, MEDICAID, SELFPAY | PROVIDERS: PCP Internal Medicine; Visit Provider Registered Nurse Emergency | DX: E11.40 Type 2 diabetes mellitus with diabetic neuropathy, unspecified (principal); Z79.4 Long term (current) use of insulin; E11.65 Type 2 diabetes mellitus with hyperglycemia; M54.14 Radiculopathy, thoracic region; I48.91 Unspecified atrial fibrillation; Z79.01 Long term (current) use of anticoagulants | CPT/HCPCS: 17999; 99212; J7336 ==